=== PATIENT | female | born 1980 | race Caucasian/White ===

== ENCOUNTER 2017-02-21 22:52 | Emergency (ER) | payer OTHER ==
[~2017-02-21] VITALS: Ht 167.6 cm; Wt 113.9 kg
[~2017-02-21 22:52] MED LIST: ATR25 PO; BIOT10TA2 PO; CALC500C70 PO; CHOL1CAP67 PO; CYAN100T PO; DTR5 PO; PRENTAB26 PO
[2017-02-21 22:53] VITALS: TEMP 36.5; Ht 167.6 cm; Wt 113.9 kg
[2017-02-21] MEDS ORDERED: SODIUM CHLORIDE 0.9% 1000ML 1,000 ML IV STA (23:11)
[2017-02-21] MEDS ORDERED: KETOROLAC TROMETHAMINE 30 MG/ML VIAL IV STA (23:11)
[2017-02-21] MEDS ORDERED: ONDANSETRON INJ 2 MG/ML 2 ML VIAL IV STA (23:11)
[2017-02-21 23:35] LABS: URINE APPEARANCE CLEAR (CLEAR); URINE BILIRUBIN NEG (NEG); URINE COLOR YELLOW; URINE NITRITE NEG (NEG); URINE PH 6.5 (4.5-7.5); URINE SPECIFIC GRAVITY 1.022 (1.000-1.030); UROBILINOGEN NEG (NEG)
[2017-02-21 23:41] LABS: MANUAL MICROSCOPIC REQUIRED? NO; REVIEW REQ? NO
[2017-02-22 00:04] LABS: BASO % 0.2 %; BASO ABS # 0.03 K/uL (0-0.2); COMPLETE YES; EOS % 1.7 %; HEMATOCRIT 41.4 % (37-47); IG% 0.2 %; LYMPH % 34.8 %; MEAN CELL VOLUME 83.3 fL (80-100); MEAN CORPUSCULAR HEMOGLOBIN 27.6 pg (25-34); MEAN CORPUSCULAR HGB CONC 33.1 g/dl (32-36); MEAN PLATELET VOLUME 10.8 fL (7.4-10.4); NEUT % 57.1 %; PLATELET COUNT 235 K/uL (130-400); RED BLOOD COUNT 4.97 M/uL (4.2-5.4); WHITE BLOOD COUNT 12.92 K/uL (4.8-10.8)
[2017-02-22 00:20] LABS: BUN/CREATININE RATIO 15.5 (10-20); CALCIUM 8.2 mg/dl (8.5-10.1); CREATININE 0.75 mg/dl (0.60-1.20); POTASSIUM 3.8 mmol/L (3.5-5.1)
--- NOTE | 2017-02-22 00:42 | EMERGENCY ROOM VISIT NOTE ---
History Report prepared by Jayson: Temo Seth Under the Supervision of: Dr. Shirley Lee D.O. First contact with patient: 23:01 Chief Complaint: HEMATURIA Stated Complaint: LF FLANK PAIN,BLOOD IN URINE,FREQUENT URINATION History of Present Illness The patient is a 36 year old female who presents to the Emergency Room with complaints of waxing and waning left flank pain beginning yesterday. She also complains of urinary symptoms and nausea. Her symptoms included increased urinary frequency, hematuria, and decreased urinary output. The patient states that her urinary symptoms began two days ago and resolved yesterday. She has a history of kidney stones and states that her current symptoms feel similar. She denies any leg cramping or swelling, vomiting, or abdominal pain. The patient notes that she has had a decreased appetite recently. She has a history of PCOS. She states that her pain fluctuates from a 7 to a 9/10 in severity and states that her pain feels like a "spasm" when it is the least severe. Source of History: patient Onset: Yesterday Position: other (left flank) Symptom Intensity: 7 to a 9/10 Timing: waxes/wanes Associated Symptoms: + nausea, + urinary symptoms (resolved hematuria, increased frequency, and decreased output), No abdominal pain, No vomiting Note: The patient denies any leg swelling. Review of Systems See HPI for pertinent positives & negatives. A total of 10 systems reviewed and were otherwise negative. Past Medical & Surgical Medical Problems: (1) Kidney stone Surgical Problems: (1) S/P gastric bypass Family History Cancer Diabetes mellitus Heart disease Hypertension Kidney disease Kidney stones Social History Smoking Status: Former Smoker Alcohol Use: none Marital Status: Housing Status: lives with significant other Occupation Status: employed Current/Historical Medications Scheduled Biotin (Biotin), 10 MG PO DAILY Calcium/Vitamin D (Os-Shadi 500 Plus D), 1 TAB PO DAILY Cholecalciferol (Vitamin D-3), 3,000 INTER.UNIT PO DAILY Cyanocobalamin (Vitamin B-12), 100 MCG PO WK Multivit/Min/Iron/Fol Ac/Pren ( Vitamin), 1 TAB PO DAILY Oxybutynin Chloride (Oxybutynin Chloride), 5 MG PO BID Scheduled PRN Hydroxyzine HCl (Hydroxyzine HCl), 25 MG PO Q6 PRN for PRN Allergies Coded Allergies: No Known Allergies (Unverified , 02/21/17) Physical Exam Vital Signs Date Time Temp Pulse Resp B/P Pulse Ox O2 Delivery O2 Flow Rate FiO2 02/22/17 00:47 69 16 104/67 98 02/21/17 22:53 36.5 75 16 160/84 100 Room Air Physical Exam HEENT: Head - normocephalic and atraumatic Pupils are equal, round, and reactive to light. Extraocular eye muscles are intact, and sclera are anicteric. Nose - moist nasal mucosa without discharge. Mouth - moist buccal mucosa. Oropharynx is nonerythematous and there is no tonsillar exudate or edema noted. Neck: Supple; no JVD, nuchal rigidity, cervical lymphadenopathy. Heart: Regular rate and rhythm. There is a normal S1 and S2 with no murmurs, clicks, or gallops appreciated. Lungs: Clear to auscultation bilaterally with no wheezes, rales, or rhonchi. Abdomen: Soft, completely nontender, nondistended, with good bowel sounds. There are no palpable pulsatile masses or hepatosplenomegaly. There is no guarding, rigidity, or rebound noted. Back: Left CVA tenderness to palpation. Extremities: No evidence of cyanosis, clubbing, or edema. There are easily palpable peripheral pulses. Skin: warm and dry with good turgor and no rashes. Medical Decision & Procedures ER Provider Diagnostic Interpretation: CT results per statrad and my review CT ABDOMEN & PELVIS: No hydronephrosis or ureteral stone. 6 mm calcification along the superior aspect of incompletely distended bladder (image 178, series 2), may represent bladder wall calcification or calcification external to the bladder. Doubt bladder stone as it is not dependent. Trace fluid in the pelvis, non-specific and possibly physiologic in a premenopausal female. Right ovary mildly enlarged. Gastric bypass. Evaluation of bowel limited by lack of oral contrast and underdistention, but there is no evidence of bowel obstruction. Normal appendix. Solid organs are otherwise unremarkable on a non-infused exam. Laboratory Results 02/21/17 23:45 Red Blood Count 4.97, Mean Corpuscular Volume 83.3, Mean Corpuscular Hemoglobin 27.6, Mean Corpuscular Hemoglobin Concent 33.1, Mean Platelet Volume 10.8, Neutrophils (%) (Auto) 57.1, Lymphocytes (%) (Auto) 34.8, Monocytes (%) (Auto) 6.0, Eosinophils (%) (Auto) 1.7, Basophils (%) (Auto) 0.2, Neutrophils # (Auto) 7.36, Lymphocytes # (Auto) 4.50, Monocytes # (Auto) 0.78, Eosinophils # (Auto) 0.22, Basophils # (Auto) 0.03 02/21/17 23:45 Test 02/21/17 23:05 02/21/17 23:45 Urine Color YELLOW Urine Appearance CLEAR (CLEAR) Urine pH 6.5 (4.5-7.5) Urine Specific [place] 1.022 (1.000-1.030) Urine Protein NEG (NEG) Urine Glucose (UA) NEG (NEG) Urine Ketones NEG (NEG) Urine Occult Blood NEG (NEG) Urine Nitrite NEG (NEG) Urine Bilirubin NEG (NEG) Urine Urobilinogen NEG (NEG) Urine Leukocyte Esterase NEG (NEG) White Blood Count 12.92 K/uL (4.8-10.8) Red Blood Count 4.97 M/uL (4.2-5.4) Hemoglobin 13.7 g/dL (12.0-16.0) Hematocrit 41.4 % (37-47) Mean Corpuscular Volume 83.3 fL (80-100) Mean Corpuscular Hemoglobin 27.6 pg (25-34) Mean Corpuscular Hemoglobin Concent 33.1 g/dl (32-36) Platelet Count 235 K/uL (130-400) Mean Platelet Volume 10.8 fL (7.4-10.4) Neutrophils (%) (Auto) 57.1 % Lymphocytes (%) (Auto) 34.8 % Monocytes (%) (Auto) 6.0 % Eosinophils (%) (Auto) 1.7 % Basophils (%) (Auto) 0.2 % Neutrophils # (Auto) 7.36 K/uL (1.4-6.5) Lymphocytes # (Auto) 4.50 K/uL (1.2-3.4) Monocytes # (Auto) 0.78 K/uL (0.11-0.59) Eosinophils # (Auto) 0.22 K/uL (0-0.5) Basophils # (Auto) 0.03 K/uL (0-0.2) RDW Standard Deviation 41.7 fL (36.4-46.3) RDW Coefficient of Variation 13.7 % (11.5-14.5) Immature Granulocyte % (Auto) 0.2 % Immature Granulocyte # (Auto) 0.03 K/uL (0.00-0.02) Anion Gap 3.0 mmol/L (3-11) Est Creatinine Clear Calc Drug Dose 135.3 ml/min Estimated GFR () 120.5 Estimated GFR (Non- 104.0 BUN/Creatinine Ratio 15.5 (10-20) Calcium Level 8.2 mg/dl (8.5-10.1) Laboratory results per my review. Medications Administered Medications (Trade) Dose Ordered Sig/Anamika Route Start Time Stop Time Status Last Admin Dose Admin Sodium Chloride (Nss 1000ml) 1,000 ml @ 999 mls/hr Q1H1M STAT IV 02/21/17 23:11 02/22/17 00:11 DC 02/21/17 23:50 999 MLS/HR Ketorolac Tromethamine (Toradol Inj) 30 mg NOW STAT IV 02/21/17 23:11 02/21/17 23:12 DC 02/22/17 00:08 30 MG Ondansetron HCl (Zofran Inj) 4 mg NOW STAT IV 02/21/17 23:11 02/21/17 23:12 DC 02/21/17 23:50 4 MG ED Course 2304: Past medical records reviewed. The patient was evaluated in room B6. A complete history and physical exam was performed. An IV lock was initiated and labs are drawn as above. 2311: Ordered Zofran Inj 4 mg IV, Toradol Inj 30 mg IV, Sodium Chloride 1000 ml @ 999 mls/hr IV. The patient will go for CT scan of the abdomen/pelvis to rule out ureteral stone or obstructive uropathy. 0000: The patient is concerned about taking NSAIDs due to her history of gastric bypass. I spoke with the patient about her concerns. 0027: Upon reevaluation, the patient is resting comfortably. She has received some relief. I discussed findings and results with the patient. She verbalized agreement of the treatment plan. 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 The patient was discharged home. Medical Decision The patient is a 36 year old female who presents to the ED with left flank pain. Differential diagnosis includes pyelonephritis, cystitis, ureteral colic, and obstructive uropathy. Laboratory studies: White count 12.9. Stable H&H. Normal renal function and glucose. Urinalysis was unremarkable. The patient has reproducible left flank pain and a history of urinary urgency and hematuria. CT scan shows no evidence of a ureteral stone or hydroureteronephrosis. Urinalysis was negative for any blood. There is no evidence of a urinary tract infection or pyelonephritis. The patient had some relief of her symptoms with Toradol. The patient has a routine follow-up with gynecology scheduled for Wednesday. I have asked her to discuss the flank pain and or urinary urgency if the symptoms persist. Impression Primary Impression: Left flank pain Additional Impression: Urinary frequency Scribe Attestation The scribe's documentation has been prepared under my direction and personally reviewed by me in its entirety. I confirm that the note above accurately reflects all work, treatment, procedures, and medical decision making performed by me. Departure Information Dispostion Home / Self-Care Referrals Iftikhar Perla M.D. (PCP) Forms HOME CARE DOCUMENTATION FORM, IMPORTANT VISIT INFORMATION, WORK / SCHOOL INSTRUCTIONS Patient Instructions ED Flank Pain Uncertain Cause, My [facility] Additional Instructions Rest. Take plenty of clear liquids Use tylenol for pain Follow up on Wednesday if pain or frequency persists Problem Qualifiers
[2017-02-22 00:47] VITALS: BP 104/67; PULSE 69; O2SAT 98
--- NOTE | 2017-02-22 07:40 | DIAGNOSTIC IMAGING REPORT ---
ABDOMEN AND PELVIS CT WITHOUT CONTRAST CT DOSE: 1797.83 mGy.cm HISTORY: eval for left CVA pain - h/o stones TECHNIQUE: Multiaxial CT images of the abdomen and pelvis were performed without the use of intravenous and oral contrast according to the standard department stone protocol. COMPARISON STUDY: Outside hospital abdomen and pelvis CT 08/19/2013. FINDINGS: The lung bases are clear. No fractures within the visualized osseous structures. The unenhanced liver, gallbladder, pancreas, spleen, and adrenal glands are unremarkable. No renal or ureteral stones. No hydronephrosis. Bladder is not well-distended but appears unremarkable. The uterus and left ovary are within normal limits. Trace pelvic free fluid. A 2.3 cm right ovarian cyst. Suboptimal evaluation for bowel pathology due to the lack of intravenous and oral contrast. However, there is no definite bowel wall thickening or obstruction. Normal appendix. Prior gastric bypass. Small fluid filled structure within the left upper quadrant adjacent suture material. This may represent a portion of the excluded stomach. IMPRESSION: 1. No renal stones or hydronephrosis. 2. Prior gastric bypass. 3. A 2.3 cm right ovarian cyst. Trace pelvic free fluid. Electronically signed by: Gilberto Dugan M.D. 02/22/2017 7:39 AM Dictated Date/Time: 02/22/2017 7:33 AM
== END 2017-02-22 00:48 | disposition home or self-care (01) ==
LOC: C.EDB 22:52
DX: R10.9 Unspecified abdominal pain (principal); R35.0 Frequency of micturition; Z98.84 Bariatric surgery status; E28.2 Polycystic ovarian syndrome; Z87.442 Personal history of urinary calculi; Z80.9 Family history of malignant neoplasm, unspecified; Z83.3 Family history of diabetes mellitus; Z82.49 Family history of ischemic heart disease and other diseases of the circulatory system; Z84.1 Family history of disorders of kidney and ureter; Z87.891 Personal history of nicotine dependence; Z79.899 Other long term (current) drug therapy

== ENCOUNTER 2017-04-10 09:48 | Emergency (ER) | payer OTHER ==
[~2017-04-10] VITALS: Ht 167.6 cm; Wt 113.6 kg
[2017-04-10 09:54] VITALS: TEMP 36.7; Ht 167.6 cm; Wt 113.6 kg
[2017-04-10] MEDS ORDERED: KETOROLAC TROMETHAMINE 30 MG/ML VIAL IV STA (10:31)
[2017-04-10] MEDS ORDERED: ONDANSETRON INJ 2 MG/ML 2 ML VIAL IV STA ×2 (10:31→11:31)
[2017-04-10] MEDS ORDERED: SODIUM CHLORIDE 0.9% 1000ML 1,000 ML IV STA (10:31)
[2017-04-10 10:41] LABS: HEMATOCRIT 43.4 % (37-47); MEAN CELL VOLUME 83.8 fL (80-100); MEAN CORPUSCULAR HEMOGLOBIN 27.8 pg (25-34); MEAN CORPUSCULAR HGB CONC 33.2 g/dl (32-36); MEAN PLATELET VOLUME 10.4 fL (7.4-10.4); PLATELET COUNT 279 K/uL (130-400); RED BLOOD COUNT 5.18 M/uL (4.2-5.4); WHITE BLOOD COUNT 17.88 K/uL (4.8-10.8)
[2017-04-10] MEDS ORDERED: OPTIRAY 320 IV PRN (10:45)
[2017-04-10 10:52] LABS: URINE APPEARANCE CLOUDY (CLEAR); URINE BILIRUBIN NEG (NEG); URINE COLOR YELLOW; URINE NITRITE NEG (NEG); URINE SPECIFIC GRAVITY 1.021 (1.000-1.030); UROBILINOGEN NEG (NEG); ZZUR CULT IF INDIC CLEAN CATCH YES
[2017-04-10 11:02] LABS: BUN/CREATININE RATIO 10.8 (10-20); CREATININE 0.77 mg/dl (0.60-1.20); POTASSIUM 3.4 mmol/L (3.5-5.1)
[2017-04-10 11:07] LABS: MANUAL MICROSCOPIC REQUIRED? NO; REVIEW REQ? NO; SULFASALICYLIC ACID POS (NEG)
--- NOTE | 2017-04-10 13:25 | DIAGNOSTIC IMAGING REPORT ---
ABD/PELVIS IV AND ORAL CONT CT DOSE: 1550.98 mGy.cm HISTORY: Pain lower abd pain and fever eval for bautista TECHNIQUE: Multiaxial CT images of the abdomen and pelvis were performed following the use of intravenous and oral contrast. COMPARISON STUDY: 02/21/2017 FINDINGS: Lung bases are clear. Gastric bypass type procedure. Kidneys enhance uniformly. Liver spleen and pancreas are unremarkable. The bowel pattern is nonobstructive. The appendix is normal. Short segment of moderate wall thickening of the distal ileum medial to the cecum. Possibly of regional enteritis is considered. 2.1 cm right ovarian cyst. Bladder is midline. No significant adenopathy. IMPRESSION: 1. 2.1 cm right ovarian cyst. 2. Wall thickening of the terminal ileum versus technical lack of distention raising the possibility of a nonspecific enteritis and/or inflammatory bowel process. 3. No evidence for mass collection or obstructive change. 4. Normal appendix The above report was generated using voice recognition software. It may contain grammatical, syntax or spelling errors. Electronically signed by: Jose Grider M.D. 04/10/2017 1:24 PM Dictated Date/Time: 04/10/2017 1:20 PM
[2017-04-10] MEDS ORDERED: ONDA4TAB10 SL (13:49)
[2017-04-10] MEDS ORDERED: OXYC1TAB3 PO (13:49)
[2017-04-10] MEDS ORDERED: CIPR-255 PO (13:49)
[2017-04-10 14:06] VITALS: BP 112/68; PULSE 72; O2SAT 99
--- NOTE | 2017-04-10 16:51 | EMERGENCY ROOM VISIT NOTE ---
History Report prepared by Jayson: Geetha Escobar Under the Supervision of: Dr. Shon Montgomery M.D. First contact with patient: 10:24 Chief Complaint: ILLNESS Stated Complaint: LOWER BACK PAIN,GROIN PAIN,VOMITING,BLOOD IN URINE History of Present Illness The patient is a 36 year old female who presents to the Emergency Room with complaints of intermittent abdominal pain that began around 0430 this morning. She currently rates her discomfort as an 8/10 in severity. The patient reports a history of kidney stones, noting that her pain today feels similar to pain she has had with previous kidney stones. She states that her pain started at 0430 and states that her pain has been sharp in nature. The patient notes back pain as well. She states that she has been vomiting. The patient reports hematuria and burning with urination. She states that she had a fever of 102 degrees Fahrenheit this morning stating that she took Tylenol for her symptoms. The patient states that she had gastric bypass surgery 1 year ago and states that she cannot take NSAIDS. She states that she was here in January for similar pain that she is having today. Source of History: patient Onset: 0430 this morning Position: abdomen Symptom Intensity: 8/10 Quality: sharp Timing: intermittent Associated Symptoms: + fevers, + vomiting, + back pain, + urinary symptoms, No hematochezia, No diarrhea Review of Systems See HPI for pertinent positives & negatives. A total of 10 systems reviewed and were otherwise negative. Past Medical & Surgical Medical Problems: (1) Kidney stone Surgical Problems: (1) S/P gastric bypass Family History Cancer Diabetes mellitus Heart disease Hypertension Kidney disease Kidney stones Social History Smoking Status: Current Every Day Smoker Alcohol Use: none Marital Status: Housing Status: lives with significant other Occupation Status: employed Current/Historical Medications Scheduled Biotin (Biotin), 10 MG PO DAILY Calcium/Vitamin D (Os-Shadi 500 Plus D), 1 TAB PO DAILY Cholecalciferol (Vitamin D-3), 3,000 INTER.UNIT PO DAILY Ciprofloxacin Hcl (Cipro), 500 MG PO BID Cyanocobalamin (Vitamin B-12), 100 MCG PO WK Multivit/Min/Iron/Fol Ac/Pren ( Vitamin), 1 TAB PO DAILY Ondasetron Odt (Zofran Odt), 4 MG SL Q6H Oxybutynin Chloride (Oxybutynin Chloride), 5 MG PO BID Scheduled PRN Hydroxyzine HCl (Hydroxyzine HCl), 25 MG PO Q6 PRN for PRN Oxycodone Ir (Roxicodone Ir), 5 MG PO Q4H PRN for Pain Allergies Coded Allergies: No Known Allergies (Unverified , 04/10/17) Physical Exam Vital Signs Date Time Temp Pulse Resp B/P (MAP) Pulse Ox O2 Delivery O2 Flow Rate FiO2 04/10/17 14:06 72 18 112/68 99 04/10/17 11:43 57 18 114/74 98 Room Air 04/10/17 09:54 36.7 66 18 145/91 99 Room Air Physical Exam Constitutional: Vital signs reviewed. Eyes: Pupils are equal round reactive to light. Conjunctiva are noninjected. ENT: Pharynx is clear without erythema or exudate. Mucous membranes are moist. Neck supple without meningeal signs. Respiratory: Clear to auscultation bilaterally. Breath sounds are equal bilaterally. Cardiovascular: Regular rate and rhythm. No rubs or gallops. GI: Lower abdominal tenderness, no guarding, no CVA tenderness. Soft, nondistended. Bowel sounds are present. Musculoskeletal: No peripheral edema. No lower extremity tenderness. Integumentary: No cyanosis. Neurological: The patient is awake and alert. No focal deficits. Psychiatric: Normal affect. Medical Decision & Procedures ER Provider Diagnostic Interpretation: CT results as stated below per my review and radiologist interpretation. ABD/PELVIS IV AND ORAL CONT CT DOSE: 1550.98 mGy.cm HISTORY: Pain lower abd pain and fever eval for bautista TECHNIQUE: Multiaxial CT images of the abdomen and pelvis were performed following the use of intravenous and oral contrast. COMPARISON STUDY: 02/21/2017 FINDINGS: Lung bases are clear. Gastric bypass type procedure. Kidneys enhance uniformly. Liver spleen and pancreas are unremarkable. The bowel pattern is nonobstructive. The appendix is normal. Short segment of moderate wall thickening of the distal ileum medial to the cecum. Possibly of regional enteritis is considered. 2.1 cm right ovarian cyst. Bladder is midline. No significant adenopathy. IMPRESSION: 1. 2.1 cm right ovarian cyst. 2. Wall thickening of the terminal ileum versus technical lack of distention raising the possibility of a nonspecific enteritis and/or inflammatory bowel process. 3. No evidence for mass collection or obstructive change. 4. Normal appendix The above report was generated using voice recognition software. It may contain grammatical, syntax or spelling errors. Electronically signed by: Jose Grider M.D. 04/10/2017 1:24 PM Dictated Date/Time: 04/10/2017 1:20 PM Laboratory Results 04/10/17 10:05 04/10/17 10:05 Test 04/10/17 10:05 Red Blood Count 5.18 M/uL (4.2-5.4) Mean Corpuscular Volume 83.8 fL (80-100) Mean Corpuscular Hemoglobin 27.8 pg (25-34) Mean Corpuscular Hemoglobin Concent 33.2 g/dl (32-36) RDW Standard Deviation 41.4 fL (36.4-46.3) RDW Coefficient of Variation 13.6 % (11.5-14.5) Mean Platelet Volume 10.4 fL (7.4-10.4) Urine Color YELLOW Urine Appearance CLOUDY (CLEAR) Urine pH 8.0 (4.5-7.5) Urine Specific [place] 1.021 (1.000-1.030) Urine Protein 1+ (NEG) Urine Glucose (UA) NEG (NEG) Urine Ketones NEG (NEG) Urine Occult Blood 3+ (NEG) Urine Nitrite NEG (NEG) Urine Bilirubin NEG (NEG) Urine Urobilinogen NEG (NEG) Urine Leukocyte Esterase LARGE (NEG) Urine WBC (Auto) >30 /hpf (0-5) Urine RBC (Auto) >30 /hpf (0-4) Urine Hyaline Casts (Auto) 1-5 /lpf (0-5) Urine Epithelial Cells (Auto) 10-20 /lpf (0-5) Urine Bacteria (Auto) NEG (NEG) Urine Test NEG (NEG) Anion Gap 6.0 mmol/L (3-11) Est Creatinine Clear Calc Drug Dose 131.6 ml/min Estimated GFR () 116.8 Estimated GFR (Non- 100.7 BUN/Creatinine Ratio 10.8 (10-20) Calcium Level 9.0 mg/dl (8.5-10.1) Laboratory results as reviewed by me. Medications Administered Medications (Trade) Dose Ordered Sig/Anamika Route Start Time Stop Time Status Last Admin Dose Admin Sodium Chloride 1,000 ml @ 999 mls/hr Q1H1M STAT IV 04/10/17 10:31 04/10/17 11:31 DC 04/10/17 10:43 999 MLS/HR Ketorolac Tromethamine (Toradol Inj) 10 mg NOW STAT IV 04/10/17 10:31 04/10/17 10:33 DC 04/10/17 10:44 10 MG Ondansetron HCl (Zofran Inj) 4 mg NOW STAT IV 04/10/17 10:31 04/10/17 10:33 DC 04/10/17 10:43 4 MG Ondansetron HCl (Zofran Inj) 4 mg NOW STAT IV 04/10/17 11:31 04/10/17 11:32 DC 04/10/17 11:31 4 MG ED Course 1028: The patient was evaluated in room C5. A complete history and physical exam was performed. 1031: Ordered Zofran Inj 4 mg IV, Toradol Inj 10 mg IV, Sodium Chloride 1000 ml @ 999 mls/hr IV, Zofran Inj 4 mg IV. 1131: Ordered Zofran Inj 4 mg IV. 1138: I discussed the patient's case with Dr. Reeder, Gastroenterology. He states that the patient should be treated for infectious enteritis. He states that the patient should not be placed on steroids, but recommends Cipro. 1340: I reevaluated the patient and she is resting comfortably. I discussed all the test results with her and I discussed the treatment plan. She verbalized complete understanding and agreement. She is ready to go home. Medical Decision This is a 36-year-old female who presents with abdominal pain and fever. Differential diagnosis includes acute appendicitis, abscess, perforation, colitis, inflammatory bowel disease, kidney stone, UTI. I did perform a limited focused review of portions of the patient's old chart on the electronic medical record. The patient was here February 21 left flank pain had a CT scan and showed no kidney stones. She had a 2.3 cm right ovarian cyst. Medication Reconciliation: I attest that I have personally reviewed the patient' s current medication list. Blood Pressure Screening: Patient was found to have an elevated blood pressure and was referred to their primary doctor for recheck and further treatment. I did evaluate the patient as noted above. The patient is presenting with lower abdominal pain with fever. She is tender in the lower abdomen. She has had vomiting but denies any diarrhea. IV access was established. I did treat her with normal saline and Zofran and Toradol IV. I did order and personally review the patient's urinalysis as described above. I did order and review the patient's blood work as noted in the electronic medical record. Her white blood cell count is elevated. I did order a CT of the abdomen and pelvis. I did review the images myself as well as the radiology report as described above. There is no evidence of appendicitis. The patient does have signs of inflammation to the terminal ileum consistent with possible enteritis or inflammatory bowel disease. I did discuss the test results with the patient. She is feeling better at this time. I did discuss case with Dr. Reeder of gastroenterology. He felt that IBD was less likely and recommended treatment for an infectious enteritis with Cipro. The Cipro will also cover her UTI. I did discuss the plan with the patient. She expressed understanding and agreement. The patient was discharged with a prescription for Cipro, oxycodone and Zofran. She was given precautions regarding these medications and given return instructions as outlined below. [place] Drug Monitoring Program Search Results: patient reviewed within database, no issues identified Consults Time Called: 1330 Consulting Physician: Dr. Reeder, Gastroenterology Returned Call: [phone] I discussed the patient's case with Dr. Reeder, Gastroenterology. He states that the patient should be treated for infectious enteritis. He states that the patient should not be placed on steroids, but recommends Cipro. Impression Primary Impression: Enteritis Additional Impression: UTI (urinary tract infection) Scribe Attestation The scribe's documentation has been prepared under my direct and personally reviewed by me in its entirety. I confirm that the note above accurately reflects all work, treatment, procedures, and medical decision making performed by me. Departure Information Dispostion Home / Self-Care Prescriptions Ondasetron Odt (ZOFRAN ODT) 4 Mg Tab 4 MG SL Q6H for Nausea, #10 TAB Prov: Shon Montgomery M.D. 04/10/17 Oxycodone Ir (Roxicodone Ir) 5 Mg Tab 5 MG PO Q4H Y for Pain, #10 TAB Prov: Shon Montgomery M.D. 04/10/17 Ciprofloxacin Hcl (CIPRO) 500 Mg Tab 500 MG PO BID, #14 TAB Prov: Shon Montgomery M.D. 04/10/17 Referrals Iftikhar Perla M.D. (PCP) Forms HOME CARE DOCUMENTATION FORM, IMPORTANT VISIT INFORMATION, WORK / SCHOOL INSTRUCTIONS Patient Instructions ED UTI Cystitis Female, My [facility] Additional Instructions You have been examined and treated today on an emergency basis only. This is not a substitute for, or an effort to provide, complete comprehensive medical care. It is impossible to recognize and treat all injuries or illnesses in a single emergency department visit. It is therefore important that you follow up closely with your physician. Call as soon as possible for an appointment. Return for worsening symptoms or if you develop blood in your stool or any other concerning symptoms. Problem Qualifiers Additional Impression: UTI (urinary tract infection) Urinary tract infection type: acute cystitis Hematuria presence: with hematuria Qualified Codes: N30.01 - Acute cystitis with hematuria
--- NOTE | 2017-04-13 11:58 | Pharmacy Progress Note ---
ED Pharmacist Progress Note Date of Service: Apr 13, 2017. Patient was unable to get Rx's written on 04/10/17 for Cipro, Zofran ODT and Oxy IR filled at [facility]. She stated the pharmacy told her the Rx's were never received from ER provider. I reviewed the medication transmissions from that day and it appeared that the Rx's for Cipro and Zofran ODT were transmitted and "received". The Oxy IR was "rejected" per the transmission record. I contacted the pharmacy to determine if the Rx's had been received. The pharmacist first told me that no Rx's were received and then proceeded to tell me that perhaps the Rx's were received and then transmitted to another pharmacy as their pharmacy does not accept insurance. I asked if there would be record of the transferred Rx's. He stated there would be no record of the transferred Rx's. I then spoke with the patient to confirm she had not had the Rx's transferred to another pharmacy which she stated she had not. She c/o NV, abd pain as well as hematuria still. I reviewed the case with Dr Guzmán who agreed to authorize new Rxs for Cipro and Zofran ODT as previously written by Dr Montgomery. The Oxy IR however would not be prescribed. I spoke with the patient again to notify her that new Rx's for Cipro and Zofran would be issued but the Oxy IR would not be prescribed, the patient was agreeable to this. She requested the Rxs be phone to [facility] and stated she has new insurance and no longer had . The following Rx's were called to [facility] ([phone]): Cipro 500mg tablet; take 1 PO BID; dispense 14 tabs; no refills, auth Dr Guzmán Zofran ODT 4mg tab; take 1 tab SL Q 6 hrs PRN nausea; dispense 10 tabs; no refills, auth Dr Guzmán.
== END 2017-04-10 14:07 | disposition home or self-care (01) ==
LOC: C.EDB 09:49 → C.EDC 14:07
DX: K52.9 Noninfective gastroenteritis and colitis, unspecified (principal); N30.01 Acute cystitis with hematuria; F17.200 Nicotine dependence, unspecified, uncomplicated; Z87.442 Personal history of urinary calculi; Z98.84 Bariatric surgery status; Z83.3 Family history of diabetes mellitus; Z82.49 Family history of ischemic heart disease and other diseases of the circulatory system; Z84.1 Family history of disorders of kidney and ureter